=== PATIENT | male | born 1960 | race Caucasian/White ===

== ENCOUNTER 2022-12-11 15:56 | Inpatient (IN) | payer OTHER ==
[2022-12-10 12:02] VITALS: BMI 29.0
[~2022-12-11 15:56] MED LIST: HYDROmorphone 0.5 MG/0.5 ML SYRINGE IVP PRN; LIDOCAINE 1% (10MG/ML) FOR IV START INTRADERMA PRN; ONDANSETRON 4 MG/2 ML VIAL IVP ONE; Pre Op ABX Message 1 EACH MISC MISCELLANE ONE
[2022-12-11] MEDS ORDERED: VANCOMYCIN IV PER PHARMACY 1 EACH MISC MISCELLANE PRN ×2 (16:19→19:11)
[2022-12-11] MEDS ORDERED: HYDROmorphone 1 MG/ML 1 ML SYRINGE IVP PRN (16:24)
[2022-12-11 16:26] LABS: Glucose,Whole Blood 111 mg/dL (70-110)
[2022-12-11] MEDS ORDERED: VANCOMYCIN 1,500 MG in SODIUM CHLORIDE 0.9% 500 ML 500 ML IVPB ONE (16:30)
[2022-12-11] MEDS ORDERED: PROPOFOL 10 MG/ML 20 ML VIAL IV ONE (17:06)
[2022-12-11] MEDS: LACTATED RINGERS 1,000 ML IV SCH (17:06)
[2022-12-11] MEDS ORDERED: fentaNYL (PF) 50 MCG/ML 2 ML AMP ONE (17:06)
[2022-12-11] MEDS ORDERED: PHENYLEPHRINE-0.9% NACL SYG 1,000 MCG/10 ML SYRINGE ONE (17:06)
[2022-12-11] MEDS ORDERED: MIDAZOLAM 2 MG/2 ML VIAL ONE (17:06)
[2022-12-11] MEDS ORDERED: LIDOCAINE 2%-EPI 1:100,000 20 ML VIAL SQ ONE (17:08)
[2022-12-11] MEDS ORDERED: BUPIVACAINE (PF) 0.5% 30 ML VIAL SQ ONE (17:08)
[2022-12-11] MEDS ORDERED: BACITRACIN ZINC 500 UNIT/GM OINT 28.4 GM TUBE TOPICAL ONE (17:51)
[2022-12-11 18:15] LABS: Glucose,Whole Blood 102 mg/dL (70-110)
[2022-12-11] MEDS ORDERED: LACTATED RINGERS 1,000 ML IV ONE (18:32)
[2022-12-11] MEDS: CEFEPIME 2 GM in SODIUM CHLORIDE 0.9% 100 ML IVPB SCH (20:04)
--- NOTE | 2022-12-11 21:26 | P.OP ---
Date of Procedure: 12/11/22 Preoperative Diagnosis: right middle finger distal phalanx osteomyelitis Postoperative Diagnosis: same Procedure(s) Performed: Right middle finger irrigation and debridement, deep bone culture, pinning Anesthesia: MAC Surgeon: Felicitas Viera Estimated Blood Loss (ml): 2 Condition: stable Disposition: PACU Indications for Procedure: Patient is a 62M with h/o DM presents with a chronic infection. On initial presentation a month ago, the patient had an abscess from what seemed to be an infected mucus cyst. We performed an I&D and the patient has been on oral antibiotics. The wound has not healed. XR showed progression to osteomyelitis. We talked about treatment options including amputation vs medical treatment with IV ABX. He would like to save the finger if at all possible so will do an I&D and stabilization and start IV ABX Description of Procedure: Patient, operative extremity, and procedure were identified in the preop holding area. After informed consent was obtained patient was brought back to the operating room where a local block was performed with 1% lidocaine with epinephrine and half percent Marcaine. The extremity was then prepped and draped in normal sterile fashion. After a formal timeout was performed a finger tourniquet was applied. The ex isting wound was extended in a T-shaped fashion to access the DIP joint. The extensor tendon was found to be completely ruptured. Dissection was carried down to the DIP joint itself and and excisional debridement was performed. all infectious looking bone and tissue was removed using a Shilo. The cartilage on the distal aspect of the middle phalanx was compromised and debrided. The DIP joint was then washed with Betadine solution and then copiously irrigated with normal saline. At this point, the DIP joint was grossly unstable. The decision was made to fixate the joint to allow the soft tissue to heal. A 5.4 K wire was then driven in a retrograde fashion from the tip of the finger through the DIP joint. It was capped with a Jergen Ball. The wound was closed loosely with 4-0 nylon suture. The wound was dressed with antibiotic ointment, adaptic, ronda, and coban. The DIP and pin cap was splinted with a tongue depressor splint.
[2022-12-11 21:30] LABS: African American GFR (CKD) 74 (>60 ml/min/1.73 sqM); Non-African American GFR(CKD) 64 (>60 ml/min/1.73 sqM)
[2022-12-12] MEDS: VANCOMYCIN 1,750 MG in SODIUM CHLORIDE 0.9% 500 ML 500 ML IVPB SCH ×2 (04:30→17:04)
[2022-12-12] MEDS: CEFEPIME 2 GM in SODIUM CHLORIDE 0.9% 100 ML IVPB SCH ×3 (04:30→21:32)
[2022-12-12] MEDS: LACTATED RINGERS 1,000 ML IV SCH (04:39)
[2022-12-12] MEDS ORDERED: ACETAMINOPHEN TAB 500 MG TAB PO PRN (07:55)
[2022-12-12] MEDS: HYDROcodone/APAP 5-325MG 1 EACH TAB PO PRN ×2 (08:50→18:19)
[2022-12-12] MEDS: MULTIVITAMINS, THERA 1 EACH TAB PO SCH (08:50)
[2022-12-12] MEDS: GABAPENTIN 100 MG CAP PO SCH (08:51)
[2022-12-12] MEDS ORDERED: MOTRIN PO SCH (09:00)
--- NOTE | 2022-12-12 12:28 | P.PN ---
Subjective Progress Note Date: 12/12/22 Principal diagnosis: Right middle finger infection This is a 62 year-old female post right middle finger I&D with percutaneous pinning. This is post-op day 1. The patient was evaluated at the bedside today. The patient denies nausea, vomiting, abdominal pain, shortness of ramiro ath, and chest pain this morning. He states his pain is controlled at this time. The patient is currently on Vancomycin and cefepime. Dr. Anderson has been consulted to help with discharge antibiotic therapy. Objective - Vital Signs Vital signs: Vital Signs Temp 98.1 F 12/12/22 07:00 Pulse 69 12/12/22 07:00 Resp 18 12/12/22 07:00 BP 124/68 12/12/22 07:00 Pulse Ox 95 12/12/22 07:00 FiO2 Intake & Output 12/11/22 12/12/22 12/12/22 18:59 06:59 18:59 Intake Total 1300 118 Output Total 2 Balance 1298 118 Weight 101.5 kg Intake: IV 1300 Oral 118 Output: Estimated Blood Loss 2 Other: # Voids 2 - Exam The patient does not appear in acute distress. Alert and orientated x3. Dressing is clean dry and intact. Pin in place without signs of infection. Dressing to remain on today and will be changed tomorrow. Neurological and circulatory status is intact. - Labs CBC & Chem 7: 12/11/22 20:18 Labs: Abnormal Lab Results - Last 24 Hours (Table) 12/11/22 Range/Units 16:21 POC Glucose (mg/dL) 111 H (70-110) mg/dL Assessment and Plan (1) Finger infection Current Visit: Yes Status: Acute Code(s): L08.9 - LOCAL INFECTION OF THE SKIN AND SUBCUTANEOUS TISSUE, UNSP SNOMED Code(s): 404280882 (2) Finger osteomyelitis, right Current Visit: Yes Status: Acute Code(s): M86.9 - OSTEOMYELITIS, UNSPECIFIED SNOMED Code(s): 8290982496045521 Plan: The clinical and operative findings were discussed with the patient. Case was discussed at length with Dr. Felicitas Viera. He will continue on IV antibiotics per infectious disease. We will await final cultures at this time. The patient most likely will need a PICC line with IV antibiotic therapy for at least 2 weeks. We will continue to follow patient closely and make further recommendations as needed.
[2022-12-12] MEDS: ENOXAPARIN 40 MG/0.4 ML SYRINGE SQ SCH (12:31)
--- NOTE | 2022-12-12 20:05 | P.CONS ---
History of Present Illness - Reason for Consult Consult date: 12/12/22 Medical management Requesting physician: Felicitas Viera - Chief Complaint Right middle finger infection - History of Present Illness This is a pleasant 62-year-old patient who follows with DION Doherty./Dr. Huynh. About 2 years ago patient had a burn on the right index finger around the DIP joint. It then developed into what was: Mucoid cyst. About a month ago it appeared to become infected. Antibiotics were given through the PCP. Did not really help much. Patient then saw Dr. Segura in the office. Cyst was opened up and cleaned out and patient is given Bactrim. It did not help. Did disease was made to proceed with surgery. Patient taken to the OR yesterday.: Extensor tendon was found to be completely ruptured. Dissection was carried down to the DIP joint itself. [place] II debridement was performed. Infectious looking bone and tissue was removed. The cartilage in the distal aspect of the middle phalanx was compromised and debrided. Joint was washed and Betadine solution indicated. The joint was fixated to allow the soft tissue to heal. Today patient copies of some pain in the finger. Has been no fever no chills. Patient IV vancomycin and IV cefepime. at the bedside. Review of systems: GEN.: None EYES: None HEENT: None NECK: None RESPIRATORY: None CARDIOVASCULAR: None GASTROINTESTINAL: None GENITOURINARY: None MUSCULOSKELETAL: As above LYMPHATICS: None HEMATOLOGICAL: None PSYCHIATRY: None NEUROLOGICAL: None Past medical history to include: Diabetes mellitus type 2, hyperlipidemia, restless legs syndrome, for which patient also takes Neurontin Social history: . Alcohol occasionally. No smoking. Retired entry level electrician Physical examination: VITAL SIGNS: 98.1, 69, 18, 124/68, 95% room air GENERAL: BMI 29.5, resting in bed, very comfortable. EYES: Pupils equal. Conjunctiva normal. HEENT: External appearance of nose and ears normal, oral cavity grossly normal. NECK: JVD not raised; masses not palpable. HEART: First and second heart sounds are normal; no edema. LUNGS: Respiratory rate normal; clear to auscultation. ABDOMEN: Soft, nontender, liver spleen not palpable, no masses palpable. PSYCH: Alert and oriented x3; mood and affect normal. MUSCULOSKELETAL:No Clubbing/cyanosis;muscles-grossly intact. Dressing over the right index finger. NEUROLOGICAL: Cranial nerves grossly intact; no facial asymmetry, power and sensation grossly intact. LYMPHATICS: No lymph nodes palpable in the axilla and neck INVESTIGATIONS, reviewed in the clinical context: ESR 5. CRP 1.6 Assessment plan: -Possible acute osteomyelitis of the right index finger DIP joint. Patient had a mucoid cyst for years that became infected about a month ago. Failed outpatient treatment with Bactrim and excisional cleaning of the cyst. She has now undergone surgical intervention IV vancomycin and IV cefepime. Cultures pending. ID consulted -Restless leg syndrome Neurontin 100 mg a day -Diabetes mellitus type 2 Metformin. Diabetic diet. -Essential hypertension Lisinopril 2.5 mg a day Care was discussed with the patient and . Questions answered. Subcu Lovenox. ID on the case. Thank you Dr. Viera Past Medical History Past Medical History: Diabetes Mellitus, Hyperlipidemia Additional Past Medical History / Comment(s): Restless Leg Syndrome. Frequent left knee pain due to previous injury. History of Any Multi-Drug Resistant Organisms: None Reported Past Surgical History: Orthopedic Surgery Additional Past Surgical History / Comment(s): Left knee ACL repair, hx "ga ngrene in genitals 2-3 yrs ago, had it cut out." Past Anesthesia/Blood Transfusion Reactions: No Reported Reaction Past Psychological History: No Psychological Hx Reported Smoking Status: Never smoker Past Alcohol Use History: Occasional Past Drug Use History: None Reported - Past Family History Mother Family Medical History: No Reported History Medications and Allergies Home Medications Medication Instructions Recorded Confirmed Type Motrin (Unknown Dose) 1 tab PO BID 12/10/22 12/11/22 History Multivitamins, Thera [Multivitamin 1 tab PO DAILY 12/10/22 12/10/22 History (formulary)] metFORMIN HCL 1,000 mg PO HS 12/10/22 12/11/22 History Gabapentin [Neurontin] 100 mg PO DAILY 12/11/22 12/11/22 History Sulfamethoxazole/Trimethoprim 1 each PO BID 12/11/22 12/11/22 History [Sulfamethoxazole-Tmp Ds Tablet] lisinopriL 2.5 mg PO DAILY 12/11/22 12/11/22 History Allergies Allergy/AdvReac Type Severity Reaction Status Date / Time ampicillin Allergy Rash/Hives Verified 12/10/22 11:50 Physical Exam Vitals: Vital Signs Temp Pulse Resp BP Pulse Ox 10/25/23 07:00 98.1 F 69 18 124/68 95 12/12/22 03:53 98.2 F 65 15 113/71 97 12/11/22 18:51 97.6 F 64 16 104/69 96 12/11/22 18:33 70 18 103/62 94 L 12/11/22 18:17 69 18 106/50 95 12/11/22 18:11 71 18 109/60 100 12/11/22 18:02 97.2 F L 74 18 98/49 96 12/11/22 16:15 97.6 F 75 16 140/74 98 Intake and Output 12/11/22 12/12/22 12/12/22 22:59 06:59 14:59 Intake Total 1300 Output Total 2 Balance 1298 Intake: IV 1300 Output: Estimated Blood Loss 2 Other: # Voids 1 2 Weight 101.5 kg Results CBC & Chem 7: 12/11/22 20:18 Labs: Abnormal Lab Results - Last 24 Hours (Table) 12/11/22 Range/Units 16:21 POC Glucose (mg/dL) 111 H (70-110) mg/dL
[2022-12-12] MEDS ORDERED: metFORMIN 500 MG TAB PO SCH (21:00)
[2022-12-12 21:36] LABS: Glucose,Whole Blood 191 mg/dL (70-110)
--- NOTE | 2022-12-12 22:39 | P.CONS ---
History of Present Illness - Reason for Consult Consult date: 12/12/22 - History of Present Illness Patient is a 62-year-old male with a past medical history negative for diabetes mellitus hyperlipidemia restless leg syndrome patient apparently did have a cyst on his right middle finger as result from a burn many years ago about a month ago the patient noticed the area becoming more swollen right painful and started to drain patient was describing the pain to be more of a sharp and throbbing patient was evaluated by orthopedic associate and surgery and the patient did have I&D culture done on 11/06/2022 did grew MSSA and the patient has been treated with a course of Bactrim DS with the patient has been on since then on reevaluation the patient was noticed to have significant worsening of the wound patient was offered amputation however the patient refused patient was taken to the OR and the patient s/p debridement of the wound and deep culture after discussion of the case with me by the surgery yesterday the patient started on cefepime and vancomycin pending evaluation. On today's evaluation that is 12/13/2019 the patient has having any fever or any chills has been complaining of pain to the right middle finger to be more of a sharp about 5-7 out of 10 no radiation with associated swelling redness but no further drainage denies any chest pain shortness of the cough no nausea vomiting abdominal pain or diarrhea Past Medical History Past Medical History: Diabetes Mellitus, Hyperlipidemia Additional Past Medical History / Comment(s): Restless Leg Syndrome. Frequent left knee pain due to previous injury. History of Any Multi-Drug Resistant Organisms: None Reported Past Surgical History: Orthopedic Surgery Additional Past Surgical History / Comment(s): Left knee ACL repair, hx "gangrene in genitals 2-3 yrs ago, had it cut out." Past Anesthesia/Blood Transfusion Reactions: No Reported Reaction Past Psychological History: No Psychological Hx Reported Smoking Status: Never smoker Past Alcohol Use History: Occasional Past Drug Use History: None Reported - Past Family History Mother Family Medical History: No Reported History Medications and Allergies Home Medications Medication Instructions Recorded Confirmed Type Motrin (Unknown Dose) 1 tab PO BID 12/10/22 12/11/22 History Multivitamins, Thera [Multivitamin 1 tab PO DAILY 12/10/22 12/10/22 History (formulary)] metFORMIN HCL 1,000 mg PO HS 12/10/22 12/11/22 History Gabapentin [Neurontin] 100 mg PO DAILY 12/11/22 12/11/22 History Sulfamethoxazole/Trimethoprim 1 each PO BID 12/11/22 12/11/22 History [Sulfamethoxazole-Tmp Ds Tablet] lisinopriL 2.5 mg PO DAILY 12/11/22 12/11/22 History Allergies Allergy/AdvReac Type Severity Reaction Status Date / Time ampicillin Allergy Rash/Hives Verified 12/10/22 11:50 Physical Exam Vitals: Vital Signs Temp Pulse Resp BP Pulse Ox 12/12/22 07:00 98.1 F 69 18 124/68 95 12/12/22 03:53 98.2 F 65 15 113/71 97 12/11/22 18:51 97.6 F 64 16 104/69 96 12/11/22 18:33 70 18 103/62 94 L 12/11/22 18:17 69 18 106/50 95 12/11/22 18:11 71 18 109/60 100 12/11/22 18:02 97.2 F L 74 18 98/49 96 12/11/22 16:15 97.6 F 75 16 140/74 98 Intake and Output 12/11/22 12/12/22 12/12/22 22:59 06:59 14:59 Intake Total 1300 Output Total 2 Balance 1298 Intake: IV 1300 Output: Estimated Blood Loss 2 Other: # Voids 1 2 Weight 101.5 kg Results CBC & Chem 7: 12/11/22 20:18 Labs: Abnormal Lab Results - Last 24 Hours (Table) 12/11/22 Range/Units 16:21 POC Glucose (mg/dL) 111 H (70-110) mg/dL Assessment and Plan Plan: 1patient presented hospital with chronic wound to the right middle finger possible infected cyst culture done about a month ago did grew MSSA in this patient failing outpatient Bactrim DS therapy status post I&D and deep culture 2-ideally we should wait for the culture to finalize to determine the infected pathogen which could be MSSA however cannot be 100% sure 3-we will continue patient on vancomycin pharmacy to dose cefepime while waiting for the culture to finalize 4-PICC line for outpatient IV antibiotics Multiple questions concern answered in layman term We will follow on clinical condition and cultures to further adjust medication if needed Thank you for this consultation we will follow the patient along with you Dictation was produced using [employer] software. please excuse any grammatical, word or spelling errors. Time with Patient: Greater than 30
[2022-12-13] MEDS: VANCOMYCIN 1,750 MG in SODIUM CHLORIDE 0.9% 500 ML 500 ML IVPB SCH (04:16)
[2022-12-13] MEDS: CEFEPIME 2 GM in SODIUM CHLORIDE 0.9% 100 ML IVPB SCH (04:16)
[2022-12-13] MEDS: LACTATED RINGERS 1,000 ML IV SCH (04:56)
[2022-12-13 05:08] LABS: AST 20 U/L (17-59); African American GFR (CKD) >90 (>60 ml/min/1.73 sqM); Albumin 3.4 g/dL (3.5-5.0); Albumin/Globulin Ratio 1.5; Alkaline Phosphatase 51 U/L (38-126); Anion Gap 6 mmol/L; Blood Urea Nitrogen 19 mg/dL (9-20); Calcium 8.7 mg/dL (8.4-10.2); Carbon Dioxide 23 mmol/L (22-30); Chloride 104 mmol/L (98-107); Globulin 2.2 g/dL; Glucose 161 mg/dL (74-99); Non-African American GFR(CKD) >90 (>60 ml/min/1.73 sqM); Potassium 4.9 mmol/L (3.5-5.1); Sodium 133 mmol/L (137-145); Total Bilirubin 0.3 mg/dL (0.2-1.3); Total Protein 5.6 g/dL (6.3-8.2)
[2022-12-13 05:27] LABS: ALT 23 U/L (4-49)
[2022-12-13] MEDS ORDERED: LIDOCAINE 1% INJ 10MG/ML (5 ML VIAL-PF) SQ ONE (07:36)
--- NOTE | 2022-12-13 07:49 | P.OP ---
Date of Procedure: 12/13/22 Description of Procedure: Preoperative Diagnosis: Need for long-term IV antibiotic access. Postoperative Diagnosis: Same. Procedure(s) Performed: Ultrasound-guided cannulation right cephalic vein. Insertion of peripherally inserted central catheter under fluoroscopic guidance. Anesthesia: local 1% lidocaine shalini Surgeon: Ernestine Estimated Blood Loss (ml): 5 IV fluids (ml): 0 Urine output (ml): 0 Pathology: none sent Condition: stable Disposition: no change Indications for Procedure: Patient requires long-term IV antibiotics as an outpatient patient is offered a PICC line to allow for intravenous administration of antibiotics. Description of Procedure: Patient was brought to the special procedure suite. The right upper extremity sterilely prepped and draped in usual manner. Ultrasound was utilized to identify the cephalic vein which was normally compressible free of visible thrombus. Permenant image was stored. 1% Xylocaine was utilized for local anesthesia tissues overlying the vein. Through this anesthetized area and with the aid of ultrasound a micropuncture needle was utilized to cannulate the vein. Once cannulated, Softip guidewire was advanced into the vein. The needle was withdrawn and a micropuncture sheath and dilator advanced over the guidewire. The guidewire was withdrawn and exchanged for the PICC guidewire and measured 45 cm to the cavoatrial junction. The catheter was cut to size and advanced into the cavoatrial junction without resistance. The sheath was peeled away. Blood was easily withdrawn through the catheter and the catheter was then flushed with heparinized saline solution and secured to the skin. Patient tolerated procedure well and was returned to their room in satisfactory and stable condition.
--- NOTE | 2022-12-13 08:26 | IR ---
EXAMINATION TYPE: IR cvc insert >=5 years DATE OF EXAM: 12/13/2022 COMPARISON: NONE HISTORY: Antibiotics. Fluoroscopy time. Fluoroscopy was provided to the referring clinician.
[2022-12-13 08:56] LABS: Basophils # (A) 0.04 X 10*3/uL (0.00-0.10); Basophils % (A) 0.6 %; Eosinophils # (A) 0.16 X 10*3/uL (0.04-0.35); Eosinophils % (A) 2.4 %; HCT 39.3 % (39.6-50.0); HGB 13.7 d/dL (13.0-17.0); Lymphocytes # (A) 1.88 X 10*3/uL (0.90-5.00); Lymphocytes % (A) 28.2 %; MCH 31.4 pg (27.0-32.0); MCHC 34.9 d/dL (32.0-37.0); MCV 89.9 FL (80.0-97.0); Mean Platelet Volume 10.9 FL (9.5-12.2); Monocytes # (A) 0.96 X 10*3/uL (0.20-1.00); Monocytes % (A) 14.4 %; NRBC Per 100 WBC 0 X 10*3/uL (0.00-0.01); Neutrophils # (A) 3.58 X 10*3/uL (1.80-7.70); Neutrophils % (A) 53.8 %; Platelet Count 193 X 10*3/uL (140-440); RBC 4.37 X 10*6/uL (4.40-5.60); RDW 12.9 % (11.5-14.5); WBC 6.66 X 10*3/uL (4.50-10.00)
[2022-12-13 09:07] VITALS: TEMP 98.3
[2022-12-13] MEDS: GABAPENTIN 100 MG CAP PO SCH (10:30)
[2022-12-13] MEDS: MULTIVITAMINS, THERA 1 EACH TAB PO SCH (10:30)
[2022-12-13] MEDS: ENOXAPARIN 40 MG/0.4 ML SYRINGE SQ SCH (10:30)
[2022-12-13] MEDS: HYDROcodone/APAP 5-325MG 1 EACH TAB PO PRN (10:36)
--- NOTE | 2022-12-13 12:31 | P.DS ---
Providers Date of admission: 12/12/22 13:46 Expected date of discharge: 12/13/22 Attending physician: Felicitas Viera DO Consults: 12/11/22 16:21 Consult Physician Routine Consulting Provider: Mariely Anderson Consult Reason/Comments: right middle finger infection/osteo Do you want consulting provider notified?: Yes 12/11/22 16:25 Consult Physician Routine Consulting Provider: Giacomo Willard Consult Reason/Comments: medical management Do you want consulting provider notified?: Yes Primary care physician: Olu Huynh - Discharge Diagnosis(es) (1) Finger infection Current Visit: Yes Status: Acute (2) Finger osteomyelitis, right Current Visit: Yes Status: Acute Hospital Course: The patient is a 62 y/o male who presented to our office on Saturday12/10/2022 with increasing pain and swelling in the right middle finger. He is status post right middle finger I&D on 11/06/2022 for a infected DIP cyst. Cultures revealed MSSA at that time. He continue wound care and oral antibiotics but the wound continued to worsen and a repeat I&D was recommended. On 12/11/2022, he underwent a repeat right middle finger I&D with percutaneous pinning. He was evaluated by infectious disease and a PICC line was placed. Culture reveals MSSA so far. He will follow up with ID on discharge. The incision is healing well and the pin is in good position without signs of pin tract issues. Vital signs and labs are stable. He is orthopedically stable for discharge today with close follow up in our office and infectious disease. IV antibiotics have been set up with homecare. Pertinent Studies: Laboratory Tests 12/13/22 12/13/22 03:59 03:59 WBC 6.66 RBC 4.37 L Hgb 13.7 Hct 39.3 L Glucose 161 H Patient Condition at Discharge: Stable Plan - Discharge Summary Discharge Rx Participant: No New Discharge Prescriptions: New Acetaminophen Tab [Tylenol] 500 mg PO Q6HR PRN tab PRN Reason: Fever And/ Or Pain HYDROcodone/APAP 5-325MG [[place] 5-325] 1 each PO Q4HR PRN #6 tab PRN Reason: Pain ceFAZolin [Kefzol] 2 gm IVP Q8HR #120 each Continue metFORMIN HCL 1,000 mg PO HS Gabapentin [Neurontin] 100 mg PO DAILY Multivitamins, Thera [Multivitamin (formulary)] 1 tab PO DAILY Motrin (Unknown Dose) 1 tab PO BID lisinopriL 2.5 mg PO DAILY Discontinued Sulfamethoxazole/Trimethoprim [Sulfamethoxazole-Tmp Ds Tablet] 1 each PO BID Discharge Medication List Motrin (Unknown Dose) 1 tab PO BID 12/10/22 [History] Multivitamins, Thera [Multivitamin (formulary)] 1 tab PO DAILY 12/10/22 [History] metFORMIN HCL 1,000 mg PO HS 12/10/22 [History] Gabapentin [Neurontin] 100 mg PO DAILY 12/11/22 [History] lisinopriL 2.5 mg PO DAILY 12/11/22 [History] Acetaminophen Tab [Tylenol] 500 mg PO Q6HR PRN tab 12/13/22 [Rx] HYDROcodone/APAP 5-325MG [[place] 5-325] 1 each PO Q4HR PRN #6 tab 12/13/22 [Rx] ceFAZolin [Kefzol] 2 gm IVP Q8HR #120 each 12/13/22 [Rx] Follow up Appointment(s)/Referral(s): Felicitas Viera DO [Doctor of Osteopathic Medicine] - 1 Week Olu Huynh MD [Primary Care Provider] - 1 Week [facility] [NON-STAFF] - 1 Week Mariely Anderson MD [STAFF PHYSICIAN] - 1 Week [facility], [NON-STAFF] - 1 Week Activity/Diet/Wound Care/Special Instructions: Keep finger clean and dry May wash over finger with clean water and soap. Watch for pin problems such as drainage, redness, swelling and increased pain Do not reinsert pin if it comes out Keep a light dressing on the finger Follow up with Dr. Viera next week. Call [facility] with any questions or concerns, . Discharge Disposition: HOME WITH HOME HEALTH SERVICES
--- NOTE | 2022-12-13 14:17 | PN ---
PROGRESS NOTE DATE OF SERVICE: 12/13/2022 SUBJECTIVE: This is a 62-year-old gentleman who was admitted with right middle finger infection, had possible osteomyelitis. No chest pain, no palpitations, no fever. OBJECTIVE: VITAL SIGNS: Pulse is 63, blood pressure 103/60, respirations 15. CHEST: Clear to auscultation. CARDIOVASCULAR: S1, S2. ABDOMEN: Soft. EXTREMITIES: Right middle finger infection present. LABORATORY DATA: Reviewed. ASSESSMENT: 1. Right middle finger infection, possibly infected cyst, status post surgery. 2. History of MSSA. 3. PICC line insertion. 4. Multiple complex medical issues. RECOMMENDATIONS: Recommended to continue current management, continue with symptomatic treatment, continue with antibiotics. Resume the home medications. Follow with primary physician, infectious disease and surgery as recommended. Rest of the recommendations per Orthopedic surgery. Further recommendations to follow. MMODL / IJN: [id number] /
[2022-12-13] MEDS ORDERED: VANCOMYCIN TROUGH DUE 1 EACH MISC MISCELLANE ONE (16:00)
[2022-12-13 17:03] VITALS: BP 100/59; PULSE 65; RESP 16
== END 2022-12-13 16:43 | disposition home health service (06) | DRG 629 ==
LOC: OR 15:56 → 6NMEDSUR 18:00 → OR 12-12 13:46 → 6NMEDSUR 12-12 13:46
PROVIDERS: ADMIT Orthopaedic Surgery Hand Surgery; ATTEND Orthopaedic Surgery Hand Surgery
PROC: 0RBW0ZZ Excision of Right Finger Phalangeal Joint, Open Approach (ICD-10-PCS; principal; 2022-12-11 17:30)
PROC: 0LB70ZZ Excision of Right Hand Tendon, Open Approach (ICD-10-PCS; principal; 2022-12-11 17:30)
PROC: 0RSW34Z Reposition Right Finger Phalangeal Joint with Internal Fixation Device, Percutaneous Approach (ICD-10-PCS; principal; 2022-12-11 17:30)
PROC: 02HV33Z Insertion of Infusion Device into Superior Vena Cava, Percutaneous Approach (ICD-10-PCS; 2022-12-13)
DX: E11.69 Type 2 diabetes mellitus with other specified complication (principal); M86.141 Other acute osteomyelitis, right hand; S66.312A Strain of extensor muscle, fascia and tendon of right middle finger at wrist and hand level, initial encounter; M25.341 Other instability, right hand; B95.61 Methicillin susceptible Staphylococcus aureus infection as the cause of diseases classified elsewhere; E78.5 Hyperlipidemia, unspecified; M25.841 Other specified joint disorders, right hand; I10 Essential (primary) hypertension; G25.81 Restless legs syndrome; Z88.0 Allergy status to penicillin; T23.22 Burn of second degree of single finger (nail) except thumb; Z79.84 Long term (current) use of oral hypoglycemic drugs; Z79.899 Other long term (current) drug therapy; Z86.19 Personal history of other infectious and parasitic diseases
CPT/HCPCS: 36573; 80053; 82565; 85025; 85652; 86140; 87040; 87070; 87075; 87077; 87186; 87205

== ENCOUNTER 2023-01-09 07:02 | Emergency (ER) | payer OTHER ==
[2023-01-09 07:30] VITALS: BP 157/93; PULSE 65; RESP 18; TEMP 98.2
--- NOTE | 2023-01-09 08:05 | ED ---
General Adult HPI - General Chief complaint: Recheck/Abnormal Lab/Rx Stated complaint: recheck Time Seen by Provider: 01/09/23 07:13 Source: patient Mode of arrival: ambulatory Limitations: no limitations - History of Present Illness Initial comments: Dictation was produced using [employer] dictation software. please excuse any grammatical, word or spelling errors. Chief Complaint: 62-year-old male with one day of PICC line malfunction History of Present Illness: Patient is a 62-year-old male who presents with PICC line malfunction. Patient was diagnosed with osteomyelitis approximately 4 weeks ago. He's been on antibiotics since then. Yesterday his PICC line was not working. He went to [facility] was given a dose and [facility]. Patient is scheduled to have IV antibiotics for the next 2 weeks. He takes Cefizox 2 g 3 times daily. Patient has no other complaints. The ROS documented in this emergency department record has been reviewed and confirmed by me. Those systems with pertinent positive or negative responses have been documented in the HPI. All other systems are other negative and/or noncontributory. - Related Data Home Medications Medication Instructions Recorded Confirmed Motrin (Unknown Dose) 1 tab PO BID 12/10/22 12/11/22 Multivitamins, Thera [Multivitamin 1 tab PO DAILY 12/10/22 12/10/22 (formulary)] metFORMIN HCL 1,000 mg PO HS 12/10/22 12/11/22 Gabapentin [Neurontin] 100 mg PO DAILY 12/11/22 12/11/22 lisinopriL 2.5 mg PO DAILY 12/11/22 12/11/22 Previous Rx's Medication Instructions Recorded Acetaminophen Tab [Tylenol] 500 mg PO Q6HR PRN tab 12/13/22 HYDROcodone/APAP 5-325MG [[place] 1 each PO Q4HR PRN #6 tab 12/13/22 5-325] ceFAZolin [Kefzol] 2 gm IVP Q8HR #120 each 12/13/22 Allergies Allergy/AdvReac Type Severity Reaction Status Date / Time ampicillin Allergy Rash/Hives Verified 12/10/22 11:50 Review of Systems ROS Statement: Those systems with pertinent positive or pertinent negative responses have been documented in the HPI. ROS Other: All systems not noted in ROS Statement are negative. Past Medical History Past Medical History: Diabetes Mellitus, Hyperlipidemia Additional Past Medical History / Comment(s): Restless Leg Syndrome. Frequent left knee pain due to previous injury. History of Any Multi-Drug Resistant Organisms: None Reported Past Surgical History: Orthopedic Surgery Additional Past Surgical History / Comment(s): Left knee ACL repair, hx "gangrene in genitals 2-3 yrs ago, had it cut out." Past Anesthesia/Blood Transfusion Reactions: No Reported Reaction Past Psychological History: No Psychological Hx Reported Smoking Status: Never smoker Past Alcohol Use History: Occasional Past Drug Use History: None Reported - Past Family History Mother Family Medical History: No Reported History General Exam - General Exam Comments Initial Comments: PHYSICAL EXAM: General Impression: Alert and oriented x3, not in acute distress HEENT: Normocephalic atraumatic, extra-ocular movements intact, pupils equal and reactive to light bilaterally, mucous membranes moist. Cardiovascular: Heart regular rate and rhythm Chest: Able to complete full sentences, no retractions, no tachypnea Abdomen: abdomen soft, non-tender, non-distended, no organomegaly Musculoskeletal: Pulses present and equal in all extremities, no peripheral edema Motor: no focal deficits noted Neurological: CN II-XII grossly intact, no focal motor or sensory deficits noted Skin: Intact with no visualized rashes Psych: Normal affect and mood Limitations: no limitations Course Vital Signs 01/09/23 07:02 Temperature 98.2 F Pulse Rate 65 Respiratory 18 Rate Blood Pressure 157/93 O2 Sat by Pulse 95 Oximetry - Reevaluation(s) Reevaluation #1: 01/09/23 10:27 Case was discussed with Dr. Sinha who will take patient to the [facility] for PICC line replacement. Medical Decision Making - Medical Decision Making Was pt. sent in by a medical professional or institution (, PA, PHOTO LAB MANAGER, urgent care, hospital, or shelter...) When possible be specific @ -No Did you speak to anyone other than the patient for history (EMS, parent, family, police, friend...)? What history was obtained from this source @ -No Did you review nursing and triage notes (agree or disagree)? Why? @ -I reviewed and agree with nursing and triage notes Were old charts reviewed (outside hosp., previous admission, EMS record, old EKG, old radiological studies, urgent care reports/EKG's, shelter records)? Report findings @ -No old charts were reviewed Differential Diagnosis (chest pain, altered mental status, abdominal pain women, abdominal pain men, vaginal bleeding, musculoskeletal, weakness, fever, dyspnea, syncope, headache, dizziness, GI bleed, back pain, seizure, CVA, palpatations, mental health)? @ -not applicable EKG interpreted by me (3pts min.). @ -None done X-rays interpreted by me (1pt min.). @ -None done CT interpreted by me (1pt min.). @ -None done U/S interpreted by me (1pt. min.). @ -None done What testing was considered but not performed or refused? (CT, X-rays, U/S, labs)? Why? @ -None What meds were considered but not given or refused? Why? @ -None Did you discuss the management of the patient with other professionals (professionals i.e. , PA, PHOTO LAB MANAGER, lab, RT, psych nurse, social media marketer, machinist first class, teacher, investigation officer, high risk case manager)? Give summary @ -see above Was smoking cessation discussed for >3mins.? @ -No Was critical care preformed (if so, how long)? @ -No Were there social determinants of health that impacted care today? How? (Homelessness, low income, unemployed, alcoholism, drug addiction, transportation, low edu. Level, literacy, decrease access to med. care, penitentiary, rehab)? @ -No Was there de-escalation of care discussed even if they declined (Discuss DNR or withdrawal of care, Hospice)? DNR status @ -No What co-morbidities impacted this encounter? (DM, HTN, Smoking, COPD, CAD, Cancer, CVA, ARF, Chemo, Hep., AIDS, mental health diagnosis, sleep apnea, morbid obesity)? @ -None Was patient admitted / discharged? Hospital course, mention meds given and route, prescriptions, significant lab abnormalities, going to OR and other pertinent info. @ -62-year-old male presents to emergency room with declined issue. Patient was given his morning dose of his IV antibiotics. Vital signs stable. Patient has no other complaints. Case discussed with vascular surgeon who will take patient to photo lab manager to replace his PICC line. Undiagnosed new problem with uncertain prognosis? @ -No Drug Therapy requiring intensive monitoring for toxicity (Heparin, Nitro, Insulin, Cardizem)? @ -No Were any procedures done? @ -No Diagnosis/symptom? Acute, or Chronic, or Acute on Chronic? Uncomplicated (without systemic symptoms) or Complicated (systemic symptoms)? @ -PICC line malfunction Side effects of treatment? @ -No Exacerbation, Progression, or Severe Exacerbation? @ -No Poses a threat to life or bodily function? How? (Chest pain, [place], [place], pneumonia, PE, COPD, DKA, ARF, appy, cholecystitis, CVA, Diverticulitis, Homicidal, Suicidal, threat to staff... and all critical care pts) @ -No Disposition Clinical Impression: Occluded PICC line Disposition: HOME SELF-CARE Condition: Good Is patient prescribed a controlled substance at d/c from ED?: No Referrals: Olu Huynh MD [Primary Care Provider] - 1-2 days Time of Disposition: 10:42
[2023-01-09] MEDS ORDERED: LIDOCAINE 1% INJ 10MG/ML (20 ML MDV) SQ ONE (10:50)
--- NOTE | 2023-01-09 11:39 | P.OP ---
Date of Procedure: 01/09/23 Description of Procedure: Preoperative Diagnosis: Need for long-term IV antibiotic access, occlusion of previous pelvic Postoperative Diagnosis: Same. Procedure(s) Performed: Exchange of peripherally inserted central catheter under fluoroscopic guidance. Anesthesia: local 1% lidocaine plain Surgeon: Ernestine Estimated Blood Loss (ml): 5 IV fluids (ml): 0 Urine output (ml): 0 Pathology: none sent Condition: stable Disposition: no change Indications for Procedure: Patient requires long-term IV antibiotics as an outpatient patient was initially offered a PICC line to allow for intravenous administration of antibiotics, he recently had an issue with the hope of getting broken into the port of the cath eter and presented for this. He still has 2 weeks of antibiotics required. Description of Procedure: Patient was brought to the special procedure suite. The right upper extremity sterilely prepped and draped in usual manner. 1% Xylocaine was utilized for local anesthesia tissues surrounding the catheter. The proximal portion of the catheter was cut, a Softip guidewire was advanced through the catheter into the vein. An the previous catheter was removed. a micropuncture sheath and dilator advanced over the guidewire. The guidewire was withdrawn and exchanged for the PICC guidewire and measured 45 cm to the cavoatrial junction. The catheter was cut to size and advanced into the cavoatrial junction without resistance. The sheath was peeled away. Blood was easily withdrawn through the catheter and the catheter was then flushed with heparinized saline solution and secured to the skin. Patient tolerated procedure well and was returned to their room in satisfactory and stable condition. Plan - Discharge Summary New Discharge Prescriptions: No Action metFORMIN HCL 1,000 mg PO HS Gabapentin [Neurontin] 100 mg PO DAILY Acetaminophen Tab [Tylenol] 500 mg PO Q6HR PRN tab PRN Reason: Fever And/ Or Pain Multivitamins, Thera [Multivitamin (formulary)] 1 tab PO DAILY Motrin (Unknown Dose) 1 tab PO BID lisinopriL 2.5 mg PO DAILY HYDROcodone/APAP 5-325MG [[place] 5-325] 1 each PO Q4HR PRN #6 tab PRN Reason: Pain ceFAZolin [Kefzol] 2 gm IVP Q8HR #120 each Discharge Medication List Motrin (Unknown Dose) 1 tab PO BID 12/10/22 [History] Multivitamins, Thera [Multivitamin (formulary)] 1 tab PO DAILY 12/10/22 [History] metFORMIN HCL 1,000 mg PO HS 12/10/22 [History] Gabapentin [Neurontin] 100 mg PO DAILY 12/11/22 [History] lisinopriL 2.5 mg PO DAILY 12/11/22 [History] Acetaminophen Tab [Tylenol] 500 mg PO Q6HR PRN tab 12/13/22 [Rx] HYDROcodone/APAP 5-325MG [[place] 5-325] 1 each PO Q4HR PRN #6 tab 12/13/22 [Rx] ceFAZolin [Kefzol] 2 gm IVP Q8HR #120 each 12/13/22 [Rx] Follow up Appointment(s)/Referral(s): Olu Huynh MD [Primary Care Provider] - 1-2 days Patient Instructions/Handouts: PICC (Peripherally Inserted Central Catheter) (DC) Activity/Diet/Wound Care/Special Instructions: Keep Picc line dressing site dry and intact-cover while showering/bathing Resume normal diet and activity Continue same home medications Discharge Disposition: HOME SELF-CARE
--- NOTE | 2023-01-14 08:34 | IR ---
EXAMINATION TYPE: IR cvc insert >=5 years DATE OF EXAM: 01/09/2023 COMPARISON: NONE HISTORY: Fluoroscopy time. Fluoroscopy was provided to the referring clinician.
== END 2023-01-09 10:34 | disposition home or self-care (01) ==
LOC: EC 07:02
DX: T82.898A Other specified complication of vascular prosthetic devices, implants and grafts, initial encounter (principal); E11.9 Type 2 diabetes mellitus without complications; Z79.84 Long term (current) use of oral hypoglycemic drugs; Z88.0 Allergy status to penicillin
CPT/HCPCS: 99283; 96365; 36573; C1751; C1769; J0690; J2001